=== PATIENT | male | born 2000 | race Two or more races ===

== ENCOUNTER 2024-06-27 06:03 | Emergency (ER) | payer BC, MEDICAID ==
[~2024-06-27] VITALS: Ht 182.9 cm; Wt 91.0 kg
[2024-06-27 06:11] VITALS: O2SAT 99
[2024-06-27] MEDS ORDERED: AMOX1TAB16 MT (09:00)
[2024-06-27] MEDS: FLUORESCEIN SODIUM 1MG/STRIP BOTHEYE ONE (09:00)
[2024-06-27] MEDS: TETRACAINE 0.5% OPHTH DROPS 4ML BOTHEYE ONE (09:00)
[2024-06-27 09:05] VITALS: BP 142/72; PULSE 83; RESP 15; TEMP 36.6; O2SAT 99
== END 2024-06-27 09:05 | disposition home or self-care (01) ==
LOC: ER 06:28
DX: H01.006 Unspecified blepharitis left eye, unspecified eyelid (principal); R03.0 Elevated blood-pressure reading, without diagnosis of hypertension; Z79.899 Other long term (current) drug therapy
CPT/HCPCS: 99283; Z7610 ×2

== ENCOUNTER 2024-12-28 21:42 | Emergency (ER) | payer BC, MEDICAID ==
[~2024-12-28] VITALS: Ht 182.9 cm; Wt 87.0 kg
[~2024-12-28 21:42] MED LIST: AMOX1TAB16 MT
[2024-12-28 22:14] VITALS: O2SAT 98
[2024-12-28] MEDS: KETOROLAC 15MG/ML VIAL IM ONE (22:53)
[2024-12-28] MEDS ORDERED: NAPR-1176 MT (23:33)
[2024-12-28 23:43] VITALS: BP 122/65; PULSE 64; RESP 18; TEMP 36.8; O2SAT 98
== END 2024-12-28 23:50 | disposition home or self-care (01) ==
LOC: ER 21:42
DX: S63.287A Dislocation of proximal interphalangeal joint of left little finger, initial encounter (principal); Z79.1 Long term (current) use of non-steroidal anti-inflammatories (NSAID); X58.XXXA Exposure to other specified factors, initial encounter; Y93.89 Activity, other specified; Y92.89 Other specified places as the place of occurrence of the external cause; Y99.9 Unspecified external cause status
CPT/HCPCS: 99284; 26770; 73140; 73130; 96372; J1885